=== PATIENT | male | born 1990 | race Caucasian/White ===

== ENCOUNTER 2018-01-05 21:51 | Emergency (ER) | payer MEDICAID ==
[~2018-01-05] VITALS: Ht 170.2 cm; Wt 67.5 kg
[2018-01-06] MEDS ORDERED: LIDOCAINE 5% PATCH TOP STA (02:08)
[2018-01-06] MEDS ORDERED: KETOROLAC 60MG/2ML VIAL IM ONE (02:15)
[2018-01-06] MEDS ORDERED: CYCLOBENZAPRINE 10MG TABLET PO ONE (03:15)
[2018-01-06 04:26] VITALS: BP 108/71
== END 2018-01-06 01:48 | disposition home or self-care (01) ==
LOC: ER 21:51
DX: S16.1XXA Strain of muscle, fascia and tendon at neck level, initial encounter (principal); S29.012A Strain of muscle and tendon of back wall of thorax, initial encounter; J45.909 Unspecified asthma, uncomplicated; M40.202 Unspecified kyphosis, cervical region; F17.200 Nicotine dependence, unspecified, uncomplicated; W10.9XXA Fall (on) (from) unspecified stairs and steps, initial encounter; Y93.01 Activity, walking, marching and hiking; Y92.9 Unspecified place or not applicable
CPT/HCPCS: 72040; 72070; 72100; 96372; 99284; J1885